=== PATIENT | male | born 1955 | race Caucasian/White ===

== ENCOUNTER 2020-12-13 10:36 | Inpatient (IN) | payer OTHER ==
[~2020-12-13] VITALS: Ht 175.3 cm; Wt 78.0 kg
[~2020-12-13 10:36] MED LIST: TESTOSTERO200 MG/1 M IM
[2020-12-13] MEDS ORDERED: EFFEXOR XR 75 M75 MG PO (15:18)
[2020-12-13] MEDS ORDERED: BREO ELLIPTA 11 EACH INH (15:19)
[2020-12-13] MEDS ORDERED: FLONASE 0.05% N16 GM (15:20)
[2020-12-13] MEDS ORDERED: TRAZODONE HCL100 MG PO (15:26)
[2020-12-13] MEDS ORDERED: LIORESAL TAB 1010 MG PO (15:29)
[2020-12-13] MEDS ORDERED: CYCLOBENZAPRINE10 MG PO (18:17)
[2020-12-13] MEDS ORDERED: BETAMETHASONE V60 ML TOP (18:19)
[2020-12-14 05:11] LABS: RED BLOOD COUNT 6.3 M/UL (4.20-5.50); WHITE BLOOD COUNT 9.5 K/UL (4.5-11.0)
[2020-12-14] MEDS ORDERED: ASPIRIN EC81 MG PO (13:00)
[2020-12-14] MEDS ORDERED: NITROGLYCERIN0.4 MG SL (13:00)
[2020-12-14] MEDS ORDERED: CLOPIDOGREL75 MG PO (13:00)
[2020-12-14] MEDS ORDERED: ATORVASTATIN CA20 MG PO (13:00)
== END 2020-12-14 14:04 | disposition home or self-care (01) | DRG 247 ==
LOC: CCU 12:48
PROVIDERS: ADMIT Internal Medicine Interventional Cardiology
PROC: 027034Z Dilation of Coronary Artery, One Artery with Drug-eluting Intraluminal Device, Percutaneous Approach (ICD-10-PCS; principal; 2020-12-13)
PROC: 047C3ZZ Dilation of Right Common Iliac Artery, Percutaneous Approach (ICD-10-PCS; 2020-12-13)
PROC: 02703ZZ Dilation of Coronary Artery, One Artery, Percutaneous Approach (ICD-10-PCS; 2020-12-13)
PROC: 3E07317 Introduction of Other Thrombolytic into Coronary Artery, Percutaneous Approach (ICD-10-PCS; 2020-12-13)
PROC: 4A023N7 Measurement of Cardiac Sampling and Pressure, Left Heart, Percutaneous Approach (ICD-10-PCS; 2020-12-13)
PROC: B2111ZZ Fluoroscopy of Multiple Coronary Arteries using Low Osmolar Contrast (ICD-10-PCS; 2020-12-13)
PROC: B2151ZZ Fluoroscopy of Left Heart using Low Osmolar Contrast (ICD-10-PCS; 2020-12-13)
DX: I21.19 ST elevation (STEMI) myocardial infarction involving other coronary artery of inferior wall (principal); I10 Essential (primary) hypertension; E78.5 Hyperlipidemia, unspecified; M06.9 Rheumatoid arthritis, unspecified; J44.9 Chronic obstructive pulmonary disease, unspecified; G89.29 Other chronic pain; Z20.822 Contact with and (suspected) exposure to COVID-19; I70.209 Unspecified atherosclerosis of native arteries of extremities, unspecified extremity; Z96.653 Presence of artificial knee joint, bilateral; Z96.643 Presence of artificial hip joint, bilateral; F17.210 Nicotine dependence, cigarettes, uncomplicated; Z86.14 Personal history of Methicillin resistant Staphylococcus aureus infection; Z80.0 Family history of malignant neoplasm of digestive organs; Z88.0 Allergy status to penicillin; Z79.01 Long term (current) use of anticoagulants; Z88.5 Allergy status to narcotic agent
CPT/HCPCS: 36415; 71046; 75630; 80048; 83735; 84439; 84443; 85025; 85347; 93005; C1725; C1760; C1769; C1874; C1876; C1887; C9600; J0461; J0690; J1644; J2250; J3010; J7030; Q9965